=== PATIENT | female | born 1995 | race African-American/Black ===

== ENCOUNTER 2018-08-27 00:04 | Emergency (ER) | payer MEDICAID ==
[~2018-08-27] VITALS: Ht 154.9 cm; Wt 49.9 kg
[2018-08-27] MEDS ORDERED: ALBUTEROL2.5 MG/3 M INH (00:15)
[2018-08-27] MEDS ORDERED: ALBUTEROL SULF8.5 GM INH (00:15)
[2018-08-27] MEDS ORDERED: D5NS 1,000 ML IV SCH (00:30)
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
[2018-08-27] MEDS ORDERED: Albuterol ud Inhalation HHN ONE (00:45)
--- NOTE | 2018-08-27 00:49 | Emergency Room Report ---
History of Present Illness General Chief Complaint: Headache Source: Patient Present Illness HPI Patient is a 22-year-old female presented after increased gastric discomfort and headache. Patient reports of increased vomiting and diarrhea. Patient was noted to have been approximately 13 weeks. Patient denies prior . Patient states that she had not been having difficulty with urination. She reports having prior history of asthma and states she has been using her inhaler more. She reports having moderate headache.She denies recent trauma. Allergies: Coded Allergies: No Known Allergies (Unverified , 08/27/18) Patient History Past Medical History: see triage record Now: Yes : 2 Reviewed Nursing Documentation: PMH: Agreed; PSxH: Agreed Nursing Documentation-PMH Past Medical History: No Stated History Hx Asthma: Yes Review of Systems All Other Systems: negative except mentioned in HPI Physical Exam Vital Signs Date Time Temp Pulse Resp B/P (MAP) Pulse Ox O2 Delivery O2 Flow Rate FiO2 08/27/18 00:07 98.4 96 15 117/51 99 Room Air Sp02 EP Interpretation: reviewed, normal General Appearance: normal inspection, well appearing, no apparent distress, alert, GCS 15 Head: normocephalic, atraumatic ENT: normal ENT inspection, hearing grossly normal, normal voice Neck: normal inspection, full range of motion, supple, no bony tend Respiratory: normal inspection, lungs clear, normal breath sounds, no respiratory distress, no retraction, no wheezing Cardiovascular #1: regular rate, rhythm, no edema Gastrointestinal: normal inspection, normal bowel sounds, non tender, soft, no guarding, no hernia, other - gravid uterus Genitourinary: no CVA tenderness Musculoskeletal: normal inspection, back normal, normal range of motion Neurologic: normal inspection, alert, oriented x3, responsive, lapping machine tender III-XII nml as tested, motor strength/tone normal, speech normal Psychiatric: normal inspection, judgement/insight normal, mood/affect normal Skin: normal inspection, normal color, no rash Medical Decision Making Diagnostic Impression: Primary Impression: Hyperemesis Additional Impression: Dehydration ER Course Present for headache. Differential diagnoses included but was not limited to hyperemesis, dehydration, urinary infection, subarachnoid hemorrhage, meningitis , aneurysm, mass lesion, intracranial hemorrhage. Patient has a benign exam laboratory testing at this time does not appear to require any imaging at this time. Patient was noted to have intrauterine on bedside ultrasound which showed adequate heart tones in the 150s and active fetus. Patient was given IV antiemetics as well as IV fluids.Headache after IV fluids. Patient states she felt better and wanted to go home. Patient was advised to follow-up with her [employer]VIS[employer] for recheck. She was given prescription for Zofran. Labs Test 08/27/18 00:40 08/27/18 01:15 White Blood Count 7.7 K/UL (4.8-10.8) Red Blood Count 4.34 M/UL (4.20-5.40) Hemoglobin 13.4 G/DL (12.0-16.0) Hematocrit 39.5 % (37.0-47.0) Mean Corpuscular Volume 91 FL (80-99) Mean Corpuscular Hemoglobin 31.0 PG (27.0-31.0) Mean Corpuscular Hemoglobin Concent 34.0 G/DL (32.0-36.0) Red Cell Distribution Width 12.1 % (11.6-14.8) Platelet Count 292 K/UL (150-450) Mean Platelet Volume 6.2 FL (6.5-10.1) Neutrophils (%) (Auto) 62.6 % (45.0-75.0) Lymphocytes (%) (Auto) 23.8 % (20.0-45.0) Monocytes (%) (Auto) 8.2 % (1.0-10.0) Eosinophils (%) (Auto) 4.6 % (0.0-3.0) Basophils (%) (Auto) 0.8 % (0.0-2.0) Sodium Level 135 MMOL/L (136-145) Potassium Level 3.7 MMOL/L (3.5-5.1) Chloride Level 102 MMOL/L (98-107) Carbon Dioxide Level 20 MMOL/L (21-32) Anion Gap 13 mmol/L (5-15) Blood Urea Nitrogen 8 mg/dL (7-18) Creatinine 0.8 MG/DL (0.55-1.30) Estimat Glomerular Filtration Rate > 60 mL/min (>60) Glucose Level 74 MG/DL (74-106) Calcium Level 9.3 MG/DL (8.5-10.1) Total Bilirubin 0.3 MG/DL (0.2-1.0) Aspartate Amino Transf (AST/SGOT) 20 U/L (15-37) Alanine Aminotransferase (ALT/SGPT) 19 U/L (12-78) Alkaline Phosphatase 45 U/L (46-116) Total Protein 7.7 G/DL (6.4-8.2) Albumin 3.5 G/DL (3.4-5.0) Globulin 4.2 g/dL Albumin/Globulin Ratio 0.8 (1.0-2.7) Lipase 178 U/L (73-393) Urine Color Yellow Urine Appearance Cloudy Urine pH 6 (4.5-8.0) Urine Specific [place] 1.025 (1.005-1.035) Urine Protein 2+ (NEGATIVE) Urine Glucose (UA) Negative (NEGATIVE) Urine Ketones 4+ (NEGATIVE) Urine Blood Negative (NEGATIVE) Urine Nitrite Negative (NEGATIVE) Urine Bilirubin Negative (NEGATIVE) Urine Urobilinogen Normal MG/DL (0.0-1.0) Urine Leukocyte Esterase Negative (NEGATIVE) Urine RBC 0-2 /HPF (0 - 2) Urine WBC 2-4 /HPF (0 - 2) Urine Squamous Epithelial Cells Many /LPF (NONE/OCC) Urine Bacteria Moderate /HPF (NONE) Urine Mucus Moderate /LPF (NONE/OCC) Urine HCG, Qualitative Positive (NEGATIVE) Urine Opiates Screen Negative (NEGATIVE) Urine Barbiturates Screen Negative (NEGATIVE) Phencyclidine (PCP) Screen Negative (NEGATIVE) Urine Amphetamines Screen Negative (NEGATIVE) Urine Benzodiazepines Screen Negative (NEGATIVE) Urine Cocaine Screen Negative (NEGATIVE) Urine Marijuana (THC) Screen Negative (NEGATIVE) Last Vital Signs Date Time Temp Pulse Resp B/P (MAP) Pulse Ox O2 Delivery O2 Flow Rate FiO2 08/27/18 00:07 98.4 96 15 117/51 99 Room Air Status: improved Disposition: HOME, SELF-CARE Condition: Stable Scripts Ondansetron (Zofran) 4 Mg Tablet 4 MG ORAL Q6H PRN for Nausea & Vomiting, #30 TAB 0 Refills Prov: Levy Pang MD 08/27/18 Referrals: NOT CHOSEN IPA/,REFERRING (PCP) Levy Pang MD Aug 27, 2018 00:49
[2018-08-27 01:02] LABS: BASOPHILS % (AUTO) 0.8 % (0.0-2.0); EOSINOPHILS % (AUTO) 4.6 % (0.0-3.0); HEMATOCRIT 39.5 % (37.0-47.0); HEMOGLOBIN 13.4 G/DL (12.0-16.0); LYMPHOCYTES % (AUTO) 23.8 % (20.0-45.0); MEAN CORPUSCULAR VOLUME 91 FL (80-99); MONOCYTES % (AUTO) 8.2 % (1.0-10.0); NEUTROPHILS % (AUTO) 62.6 % (45.0-75.0); PLATELET COUNT 292 K/UL (150-450); RED BLOOD COUNT 4.34 M/UL (4.20-5.40); RED CELL DISTRIBUTION WIDTH 12.1 % (11.6-14.8); WHITE BLOOD COUNT 7.7 K/UL (4.8-10.8)
[2018-08-27 01:07] LABS: ANION GAP 13 mmol/L (5-15); BLOOD UREA NITROGEN 8 mg/dL (7-18); CALCIUM 9.3 MG/DL (8.5-10.1); CARBON DIOXIDE 20 MMOL/L (21-32); CHLORIDE 102 MMOL/L (98-107); CREATININE 0.8 MG/DL (0.55-1.30); POTASSIUM 3.7 MMOL/L (3.5-5.1); SODIUM 135 MMOL/L (136-145)
[2018-08-27 01:12] LABS: ALANINE AMINOTRANSFERASE 19 U/L (12-78); ALBUMIN 3.5 G/DL (3.4-5.0); ALBUMIN/GLOBULIN RATIO 0.8 (1.0-2.7); ALKALINE PHOSPHATASE 45 U/L (46-116); ASPARTATE AMINO TRANSFERASE 20 U/L (15-37); BILIRUBIN,TOTAL 0.3 MG/DL (0.2-1.0)
[2018-08-27 01:15] VITALS: BP 111/54
[2018-08-27 01:45] LABS: APPEARANCE,URINE CLOUDY; BILIRUBIN, URINE NEGATIVE (NEGATIVE); GLUCOSE, URINE (UA) NEGATIVE (NEGATIVE); KETONES,URINE 4+ (NEGATIVE); LEUKOCYTE ESTERASE ,URINE NEGATIVE (NEGATIVE); NITRITE,URINE NEGATIVE (NEGATIVE); PH,URINE 6 (4.5-8.0); PROTEIN,URINE 2+ (NEGATIVE); UROBILINOGEN,URINE NORMAL MG/DL (0.0-1.0)
[2018-08-27 01:51] LABS: COLOR,URINE YELLOW
--- NOTE | 2018-08-27 02:00 | NUR ---
ED Nurse Note: PT RESTING QUIETLY, MEDS GIVEN FOR NAUSEA SLIGHTLY EFFECTIVE, NOT COMPLETELY RESOLVED BUT CAN HANDLE ORAL LIQUIDS WITHOUT EMESIS, PT TOLERATING WELL, MEDICATED FOR PAIN WITH TYLENOL, ALSO EFFECTIVE, PT COMPLETED BREATHING TREATMENT, O2 GEB=765% AND STATES SHE FEELS BETTER, PT FAMILY MEMBER ARRIVED AT BEDSIDE, NO CP, NO SOB, WILL CONTINUE TO CLOSELY MONITOR AND RESUME ORDERED.
[2018-08-27] MEDS ORDERED: ZOFRAN4 MG ORAL (02:31)
[2018-08-27 03:00] VITALS: BP 117/63
[2018-08-27 03:45] VITALS: BP 122/61
--- NOTE | 2018-08-27 03:50 | NUR ---
ED Nurse Note: PT COMPLETED ALL IV FLUIDS AND BEING DISCHARGED TO HOME, PT IS AWAKE, ALERT AND ORIENTED X 4, AMBULATORY, PT GIVEN F/U INFO, AFTER CARE INSTRUCTIONS AND RE-VERBALIZES PROPER MEDICATION ADMINISTRATION WITH PRESCRIPTION, PT ALSO GIVEN CLINIC INFORMATION FOR POSSIBLE CLINICS TO F/U, WITH FAMILY, ARM BAND AND IV LINE REMOVED WITHOUT COMPLICATIONS, NAD NOTED DURING D/C TO HOME.
[2018-08-27 04:00] VITALS: BP 122/61
== END 2018-08-27 04:00 | disposition home or self-care (01) ==
LOC: EMR 00:29
DX: R10.9 Unspecified abdominal pain (principal); R51 Headache; O21.9 Vomiting of pregnancy, unspecified; Z3A.13 13 weeks gestation of pregnancy
CPT/HCPCS: 36415; 80053; 80307; 81003; 81025; 83690; 85025; 87086; 94640; 94664; 96361; 96374; 99284; J2405

== ENCOUNTER 2018-09-22 09:55 | Emergency (ER) | payer MEDICAID ==
[~2018-09-22] VITALS: Ht 154.9 cm; Wt 49.0 kg
[~2018-09-22 09:55] MED LIST: ALBUTEROL SULF8.5 GM INH; ALBUTEROL2.5 MG/3 M INH; ZOFRAN4 MG ORAL
--- NOTE | 2018-09-22 10:11 | NUR ---
ED Nurse Note: Pt about 17 weeks came in from home due to nausea/vomitting/contipation x3 days. No complaint of abdominal pain brandon. No active vomtting. Will cont to monitor.
[2018-09-22] MEDS ORDERED: Metoclopramide 10mg/2ml Inj IVP ONE (10:30)
[2018-09-22] MEDS ORDERED: D5 1/2NS 1,000 ML IV SCH (10:30)
[2018-09-22] MEDS ORDERED: D5NS 1,000 ML IV ONE (10:30)
[2018-09-22] MEDS ORDERED: DiphenhydrAMINE 50mg/ml Inj IVP ONE (10:30)
--- NOTE | 2018-09-22 10:37 | NUR ---
ED Nurse Note: Blood and urine collected and sent to lab.
--- NOTE | 2018-09-22 10:39 | Emergency Room Report ---
History of Present Illness General Chief Complaint: Vomiting Source: Patient Present Illness HPI Patient presents with uncontrolled vomiting. She is 16 weeks and her last period was June 02. She's not been before. She's unable to keep down Pedialyte. She's not used any medications. Yesterday she had some suprapubic pain. It felt like a cramp. She took no medication for that. Resolved overnight and there is no pain at this time. She denies any vaginal bleeding or discharge. There is no dysuria. She denies fever or chills. She feels weak when she stands and dizzy. She recently moved from [place] and has not had checkups here. She was being followed in [place]. She does not know her blood type. She does have a prescription for vitamins. History of asthma without any recent wheezing or shortness of breath. She denies any chest pain or rashes. No headache. No calf pain or swelling. Allergies: Coded Allergies: No Known Allergies (Unverified , 08/27/18) Patient History Past Medical History: see triage record Social History Narrative Recent move from [place] Now: Yes - 16 WEEKS Reviewed Nursing Documentation: PMH: Agreed; PSxH: Agreed Nursing Documentation-PM Past Medical History: No History, Except For Hx Asthma: Yes Review of Systems All Other Systems: negative except mentioned in HPI Physical Exam Vital Signs Date Time Temp Pulse Resp B/P (MAP) Pulse Ox O2 Delivery O2 Flow Rate FiO2 09/22/18 10:00 98.6 97 16 118/66 98 Room Air Sp02 EP Interpretation: reviewed, normal General Appearance: well appearing, no apparent distress, GCS 15 Head: normocephalic Eyes: bilateral eye normal inspection, bilateral eye PERRL ENT: moist mucus membranes Neck: supple Respiratory: lungs clear, normal breath sounds Cardiovascular #1: regular rate, rhythm Cardiovascular #2: 2+ radial (R) Gastrointestinal: normal inspection, normal bowel sounds, non tender, non- distended Genitourinary: no CVA tenderness, deferred - Ultrasound Musculoskeletal: back normal, gait/station normal, normal range of motion Neurologic: alert, oriented x3, grossly normal Psychiatric: mood/affect normal Skin: normal inspection, warm/dry Medical Decision Making Diagnostic Impression: Primary Impression: Hyperemesis Additional Impression: 16 weeks 6 days gestation ER Course Patient presents 16 weeks with persistent vomiting and unable to keep down liquids. Differential includes hyperemesis cysts gravidarum, urinary tract infection, threatened miscarriage, gastroenteritis amongst others. Evaluation with labs and ultrasound. Patient will be treated with IV hydration with D5 normal saline. In addition the patient will be given Reglan and Benadryl. Labs with normal white count and hemoglobin. CMP normal. Urinalysis with ketones. No pyuria. Ultrasound reveals intrauterine 16 weeks 6 days without abnormality. Patient is able to tolerate oral liquids and solid food. She is no longer dizzy at this time. Discussed treatment plan. Patient stable for outpatient observation and treatment. Laboratory Tests Test 09/22/18 10:10 09/22/18 10:29 Urine Color Brown Urine Appearance Slightly cloudy Urine pH 6.5 (4.5-8.0) Urine Specific [place] 1.010 (1.005-1.035) Urine Protein 1+ (NEGATIVE) H Urine Glucose (UA) Negative (NEGATIVE) Urine Ketones 3+ (NEGATIVE) H Urine Blood Negative (NEGATIVE) Urine Nitrite Negative (NEGATIVE) Urine Bilirubin Negative (NEGATIVE) Urine Urobilinogen 1 MG/DL (0.0-1.0) H Urine Leukocyte Esterase 1+ (NEGATIVE) H Urine RBC 0 /HPF (0 - 2) Urine WBC 2-4 /HPF (0 - 2) Urine Squamous Epithelial Cells Moderate /LPF (NONE/OCC) H Urine Bacteria Many /HPF (NONE) H White Blood Count 6.1 K/UL (4.8-10.8) Red Blood Count 4.32 M/UL (4.20-5.40) Hemoglobin 13.1 G/DL (12.0-16.0) Hematocrit 40.4 % (37.0-47.0) Mean Corpuscular Volume 93 FL (80-99) Mean Corpuscular Hemoglobin 30.4 PG (27.0-31.0) Mean Corpuscular Hemoglobin Concent 32.5 G/DL (32.0-36.0) Red Cell Distribution Width 11.9 % (11.6-14.8) Platelet Count 324 K/UL (150-450) Mean Platelet Volume 6.2 FL (6.5-10.1) L Neutrophils (%) (Auto) 65.7 % (45.0-75.0) Lymphocytes (%) (Auto) 20.8 % (20.0-45.0) Monocytes (%) (Auto) 6.8 % (1.0-10.0) Eosinophils (%) (Auto) 6.2 % (0.0-3.0) H Basophils (%) (Auto) 0.5 % (0.0-2.0) Sodium Level 135 MMOL/L (136-145) L Potassium Level 4.2 MMOL/L (3.5-5.1) Chloride Level 103 MMOL/L (98-107) Carbon Dioxide Level 24 MMOL/L (21-32) Anion Gap 9 mmol/L (5-15) Blood Urea Nitrogen 5 mg/dL (7-18) L Creatinine 0.7 MG/DL (0.55-1.30) Estimate Glomerular Filtration Rate > 60 mL/min (>60) Glucose Level 108 MG/DL (74-106) H Calcium Level 9.7 MG/DL (8.5-10.1) Total Bilirubin 0.2 MG/DL (0.2-1.0) Aspartate Amino Transferase (AST) 23 U/L (15-37) Alanine Aminotransferase (ALT) 21 U/L (12-78) Alkaline Phosphatase 52 U/L (46-116) Total Protein 8.1 G/DL (6.4-8.2) Albumin 3.6 G/DL (3.4-5.0) Globulin 4.5 g/dL Albumin/Globulin Ratio 0.8 (1.0-2.7) L Lipase 225 U/L (73-393) CT/MRI/US Diagnostic Results CT/MRI/US Diagnostic Results : Imaging Test Ordered: Pelvic Impression Impression: 16 week one day, by average of ultrasound measurements, single live intrauterine . No unusual features Last Vital Signs Date Time Temp Pulse Resp B/P (MAP) Pulse Ox O2 Delivery O2 Flow Rate FiO2 09/22/18 15:07 98.6 74 20 114/67 100 Room Air Status: improved Disposition: HOME, SELF-CARE Condition: Improved Scripts Promethazine Hcl (PROMETHEGAN) 25 Mg Supp.rect 25 MG RC Q8HR PRN for Nausea & Vomiting, #4 SUPP 1 Refill Prov: Rivas Oates MD 09/22/18 Promethazine Hcl* (PHENERGAN*) 25 Mg Tablet 25 MG ORAL Q8HR PRN for Nausea & Vomiting, #15 TAB 0 Refills Prov: Rivas Oates MD 09/22/18 Referrals: NOT CHOSEN IPA/,REFERRING (PCP) Rivas Oates MD Sep 22, 2018 10:39
--- NOTE | 2018-09-22 10:45 | NUR ---
ED Nurse Note: US tech notified about order.
[2018-09-22 10:52] LABS: BASOPHILS % (AUTO) 0.5 % (0.0-2.0); EOSINOPHILS % (AUTO) 6.2 % (0.0-3.0); HEMATOCRIT 40.4 % (37.0-47.0); HEMOGLOBIN 13.1 G/DL (12.0-16.0); LYMPHOCYTES % (AUTO) 20.8 % (20.0-45.0); MEAN CORPUSCULAR VOLUME 93 FL (80-99); MONOCYTES % (AUTO) 6.8 % (1.0-10.0); NEUTROPHILS % (AUTO) 65.7 % (45.0-75.0); PLATELET COUNT 324 K/UL (150-450); RED BLOOD COUNT 4.32 M/UL (4.20-5.40); RED CELL DISTRIBUTION WIDTH 11.9 % (11.6-14.8); WHITE BLOOD COUNT 6.1 K/UL (4.8-10.8)
[2018-09-22 11:02] LABS: APPEARANCE,URINE SLIGHTLY CLOUDY; BILIRUBIN, URINE NEGATIVE (NEGATIVE); GLUCOSE, URINE (UA) NEGATIVE (NEGATIVE); KETONES,URINE 3+ (NEGATIVE); LEUKOCYTE ESTERASE ,URINE 1+ (NEGATIVE); NITRITE,URINE NEGATIVE (NEGATIVE); PH,URINE 6.5 (4.5-8.0); PROTEIN,URINE 1+ (NEGATIVE); UROBILINOGEN,URINE 1 MG/DL (0.0-1.0)
[2018-09-22 11:06] LABS: COLOR,URINE BROWN
[2018-09-22 11:07] LABS: ANION GAP 9 mmol/L (5-15); BLOOD UREA NITROGEN 5 mg/dL (7-18); CALCIUM 9.7 MG/DL (8.5-10.1); CARBON DIOXIDE 24 MMOL/L (21-32); CHLORIDE 103 MMOL/L (98-107); CREATININE 0.7 MG/DL (0.55-1.30); POTASSIUM 4.2 MMOL/L (3.5-5.1); SODIUM 135 MMOL/L (136-145)
--- NOTE | 2018-09-22 11:07 | NUR ---
ED Nurse Note: Pt down to US for imaging.
[2018-09-22 11:11] LABS: ALANINE AMINOTRANSFERASE 21 U/L (12-78); ALBUMIN 3.6 G/DL (3.4-5.0); ALBUMIN/GLOBULIN RATIO 0.8 (1.0-2.7); ALKALINE PHOSPHATASE 52 U/L (46-116); ASPARTATE AMINO TRANSFERASE 23 U/L (15-37); BILIRUBIN,TOTAL 0.2 MG/DL (0.2-1.0)
[2018-09-22 13:07] VITALS: BP 109/67
--- NOTE | 2018-09-22 14:38 | Diagnostic Imaging Report ---
Indication: Pelvic pain, vomiting x2 weeks, patient Technique: Transabdominal and transvaginal images Comparison: none Findings: There is a single live intrauterine . This demonstrates cephalic presentation. There is positive heart motion, heart rate is 151 bpm. Normal amniotic fluid volume, amniotic fluid index is 15.7 cm. Posterior fundal placenta, clears the internal cervical os. Cervix is closed, endocervical canal measuring 3 cm in length. measurements as follows: Biparietal diameter 3.5 cm, 16 weeks 6 days; head circumference 13.3 cm, 16 weeks 6 days; abdominal circumference 10.2 cm, 16 weeks 2 days; femur length 1.7 cm, 15 weeks zero days. Estimated gestational age by average of ultrasound measurements is 16 weeks one day. Estimated gestational age by dates is 15 weeks 4 days. Estimated date of delivery 03/08/2019. Only limited assessment of anatomy, due to early stage of , emergent nature of the exam. Normal three-vessel cord, stomach, cord insertion, spine, four-chamber heart, urinary bladder No definite myometrial abnormality. Neither ovary could be visualized. Impression: 16 week one day, by average of ultrasound measurements, single live intrauterine . No unusual features
[2018-09-22] MEDS ORDERED: PROMETHEGAN25 MG RC (15:01)
[2018-09-22] MEDS ORDERED: PHENERGAN25 M1 ORAL (15:01)
[2018-09-22 15:07] VITALS: BP 114/67
--- NOTE | 2018-09-22 15:07 | NUR ---
ED Nurse Note: Pt is ready to be discharged by ERMD. Discharge paper and prescription given, mother verbalized understanding of discharge instruction. AOx4, VSS. Wristband and IV line removed. Pt ambulated out with steady gait with all belongings.
== END 2018-09-22 15:07 | disposition home or self-care (01) ==
LOC: EMR 10:08
DX: O21.0 Mild hyperemesis gravidarum (principal); Z3A.16 16 weeks gestation of pregnancy; O26.892 Other specified pregnancy related conditions, second trimester; R10.30 Lower abdominal pain, unspecified
CPT/HCPCS: 36415; 76805; 80053; 81003; 83690; 85025; 86850; 86900; 86901; 87086; 96365; 96366; 96375; 99284; J1200; J2765

== ENCOUNTER 2018-11-25 17:51 | Emergency (ER) | payer MEDICAID, OTHER ==
[~2018-11-25] VITALS: Ht 154.9 cm; Wt 52.2 kg
[~2018-11-25 17:51] MED LIST changes: +PHENERGAN25 M1 ORAL; +PROMETHEGAN25 MG RC
[2018-11-25 18:04] VITALS: BP 122/74
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
[2018-11-25] MEDS ORDERED: Acetaminophen 500mg (ES) tab ORAL ONE (18:30)
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
--- NOTE | 2018-11-25 19:05 | NUR ---
ED Nurse Note: Blood and urine sent.
--- NOTE | 2018-11-25 19:13 | NUR ---
HAND-OFF: Report given to Valentina PALACIOS.
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
[2018-11-25 19:17] LABS: BILIRUBIN, URINE NEGATIVE (NEGATIVE); COLOR,URINE PALE YELLOW; GLUCOSE, URINE (UA) NEGATIVE (NEGATIVE); KETONES,URINE NEGATIVE (NEGATIVE); LEUKOCYTE ESTERASE ,URINE 1+ (NEGATIVE); NITRITE,URINE NEGATIVE (NEGATIVE); PH,URINE 7 (4.5-8.0); PROTEIN,URINE 1+ (NEGATIVE); UROBILINOGEN,URINE NORMAL MG/DL (0.0-1.0)
[2018-11-25 19:18] LABS: APPEARANCE,URINE SLIGHTLY CLOUDY
--- NOTE | 2018-11-25 19:45 | NUR ---
ED Nurse Note: Pt's HR 144/mint. Pt was sent down for U/S.
[2018-11-25 19:59] LABS: BASOPHILS % (AUTO) 0.7 % (0.0-2.0); EOSINOPHILS % (AUTO) 5.2 % (0.0-3.0); HEMATOCRIT 34.8 % (37.0-47.0); HEMOGLOBIN 11.8 G/DL (12.0-16.0); LYMPHOCYTES % (AUTO) 25.2 % (20.0-45.0); MEAN CORPUSCULAR VOLUME 92 FL (80-99); NEUTROPHILS % (AUTO) 60.9 % (45.0-75.0); PLATELET COUNT 300 K/UL (150-450); RED BLOOD COUNT 3.77 M/UL (4.20-5.40); RED CELL DISTRIBUTION WIDTH 12.5 % (11.6-14.8); WHITE BLOOD COUNT 7.5 K/UL (4.8-10.8)
[2018-11-25 20:00] LABS: ANION GAP 11 mmol/L (5-15); BLOOD UREA NITROGEN 7 mg/dL (7-18); CALCIUM 9.5 MG/DL (8.5-10.1); CARBON DIOXIDE 24 MMOL/L (21-32); CHLORIDE 103 MMOL/L (98-107); CREATININE 0.7 MG/DL (0.55-1.30); POTASSIUM 3.9 MMOL/L (3.5-5.1); SODIUM 138 MMOL/L (136-145)
[2018-11-25 20:05] LABS: ALANINE AMINOTRANSFERASE 44 U/L (12-78); ALBUMIN 3.3 G/DL (3.4-5.0); ALBUMIN/GLOBULIN RATIO 0.7 (1.0-2.7); ALKALINE PHOSPHATASE 77 U/L (46-116); ASPARTATE AMINO TRANSFERASE 32 U/L (15-37); BILIRUBIN,TOTAL 0.2 MG/DL (0.2-1.0)
--- NOTE | 2018-11-25 20:20 | NUR ---
ED Nurse Note: Pt returned from U/S.
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
[2018-11-25 22:16] VITALS: BP 108/69
--- NOTE | 2018-11-25 22:16 | NUR ---
TRANSFER [facility]/ [facility] Triage: Patient transferred to [facility] Triage as ordered. Report given to Symone/RN. Belongings sent with Pt and bedside report given to EMS.Family at bed side.
== END 2018-11-25 22:16 | disposition short-term general hospital (02) ==
LOC: EMR 19:05
DX: O26.892 Other specified pregnancy related conditions, second trimester (principal); Z3A.26 26 weeks gestation of pregnancy; R10.30 Lower abdominal pain, unspecified; M54.5 Low back pain; V43.52XA Car driver injured in collision with other type car in traffic accident, initial encounter; Y92.481 Parking lot as the place of occurrence of the external cause
CPT/HCPCS: 36415; 76805; 80053; 81003; 83690; 84702; 85025; 86850; 86900; 86901; 87086; 96360; 99285

== ENCOUNTER 2019-12-07 15:36 | Emergency (ER) | payer OTHER ==
[~2019-12-07] VITALS: Ht 154.9 cm; Wt 54.4 kg
[2019-12-07 16:02] VITALS: BP 119/69
--- NOTE | 2019-12-07 17:19 | Emergency Room Report ---
History of Present Illness General Chief Complaint: General Complaint Source: Patient Present Illness HPI 24-year-old female with no symptom past medical history here requesting test via blood. Reports that she was last sexually active 2 weeks ago , denies any vaginal bleeding or spotting. Is in no discomfort. Reports her last menstrual period was 2 months ago was used to take control however has not taken control in over a month now. Sitting comfortably with stable vital signs. Allergies: Coded Allergies: No Known Allergies (Unverified , 08/27/18) COVID-19 Screening Contact w/high risk pt: No Recent Travel to affected area: No Experienced COVID-19 symptoms?: No Patient History Past Medical History: see triage record Past Surgical History: none Pertinent Family History: none Now: Yes Immunizations: UTD Reviewed Nursing Documentation: PMH: Agreed; PSxH: Agreed Nursing Documentation-PMH Hx Asthma: Yes Review of Systems All Other Systems: negative except mentioned in HPI Physical Exam Vital Signs Date Time Temp Pulse Resp B/P (MAP) Pulse Ox O2 Delivery O2 Flow Rate FiO2 12/07/19 15:52 98.1 94 20 119/69 (86) 98 Room Air Sp02 EP Interpretation: reviewed, normal General Appearance: no apparent distress, alert, GCS 15, non-toxic Head: normocephalic, atraumatic Eyes: bilateral eye normal inspection, bilateral eye PERRL ENT: hearing grossly normal, normal pharynx, no angioedema, normal voice Neck: full range of motion, supple/symm/no masses Respiratory: chest non-tender, lungs clear, normal breath sounds, no rhonchi, no wheezing, speaking full sentences Cardiovascular #1: regular rate, rhythm, no edema Gastrointestinal: non tender, soft Rectal: deferred Genitourinary: no CVA tenderness Musculoskeletal: back normal Neurologic: alert, motor strength/tone normal, oriented x3, sensory intact, responsive, speech normal Psychiatric: judgement/insight normal, memory normal, mood/affect normal, no suicidal/homicidal ideation Skin: no rash Lymphatic: no adenopathy Medical Decision Making PA Attestation All diagnoses and treatment plans were reviewed and discussed with my supervising physician Dr. Alvarez Diagnostic Impression: Primary Impression: test negative ER Course 24-year-old female with no symptom past medical history here requesting test via blood. Reports that she was last sexually active 2 weeks ago , denies any vaginal bleeding or spotting. Is in no discomfort. Reports her last menstrual period was 2 months ago was used to take control however has not taken control in over a month now. Sitting comfortably with stable vital signs. Ddx considered but are not limited to: Positive , negative , complication Vital signs: are WNL, pt. is afebrile H&PE are most consistent with: Negative test ORDERS: Urine test ED INTERVENTIONS: None required at this time. DISCHARGE: At this time pt. is stable for d/c to home. Will provide printed patient care instructions, and any necessary prescriptions. Care plan and follow up instructions have been discussed with the patient prior to discharge. Gave patient a list of [facility] clinic and go as we do not test for blood hCG at this time as we have a negative urine test. Patient in no distress, denies any abdominal pain, vaginal discharge. Last Vital Signs Date Time Temp Pulse Resp B/P (MAP) Pulse Ox O2 Delivery O2 Flow Rate FiO2 12/07/19 15:52 98.1 94 20 119/69 (86) 98 Room Air Disposition: HOME, SELF-CARE Condition: Stable Patient Instructions: Test Information Giorgio Valdez Dec 07, 2019 17:19
[2019-12-07 17:32] VITALS: BP 119/69
== END 2019-12-07 17:32 | disposition home or self-care (01) ==
LOC: EMR 16:00
DX: Z00.00 Encounter for general adult medical examination without abnormal findings (principal)
CPT/HCPCS: 81025; Z7502; 99283

== ENCOUNTER 2020-06-11 22:33 | Emergency (ER) | payer OTHER ==
[~2020-06-11] VITALS: Ht 154.9 cm; Wt 52.2 kg
[2020-06-11] MEDS ORDERED: Albuterol 90mcg Inhaler 8gm INH ONE ×2 (22:45)
--- NOTE | 2020-06-11 22:45 | NUR ---
ED Nurse Note: Patient walked into the ED with c/o asthma. Patient stated shes experiencing asthma flare up since this am accompanied by chest pain /. Patient stated he ran out of inhaler for 3 weeks. PAtient denies fever and chills, N&V. Patient satting at 100% on RA at bedside. + wheezes heard by upon assessment.
--- NOTE | 2020-06-11 22:46 | NUR ---
ED Nurse Note: ERMd at bedside
--- NOTE | 2020-06-11 22:48 | NUR ---
ED Nurse Note: Breathing tx and oral meds given
--- NOTE | 2020-06-11 22:48 | Emergency Room Report ---
History of Present Illness General Chief Complaint: Asthma Source: Patient Present Illness HPI This is a 24-year-old female with history of asthma. She presents with chief complaint of asthma exacerbation. Onset tonight. She is out of her inhaler. Last use was 3 weeks ago. No fever chills. no intubation. Unknown last steroid use. 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 COVID-19 Screening: Negative COVID-19 COVID-19 Testing Source: 06/11 Patient History Past Medical History: asthma Past Surgical History: none Pertinent Family History: none Social History: Denies: smoking Now: No Immunizations: other Reviewed Nursing Documentation: PMH: Agreed; PSxH: Agreed Nursing Documentation-PMH Hx Asthma: Yes Review of Systems Eye: Denies: eye pain, blurred vision ENT: Denies: ear pain, nose congestion, throat swelling Respiratory: Reports: cough, shortness of breath, wheezing Cardiovascular: Denies: chest pain, palpitations Gastrointestinal: Denies: abdominal pain, diarrhea, nausea, vomiting Musculoskeletal: Denies: back pain, joint pain Skin: Denies: rash Neurological: Denies: headache, numbness Endocrine: Denies: increased thirst, increased urine Hematologic/Lymphatic: Denies: easy bruising All Other Systems: negative except mentioned in HPI Physical Exam Vital Signs Date Time Temp Pulse Resp B/P (MAP) Pulse Ox O2 Delivery O2 Flow Rate FiO2 06/11/20 22:38 97.2 92 20 117/71 (86) 99 Room Air Vitals normal Sp02 EP Interpretation: reviewed, normal General Appearance: well appearing, no apparent distress, alert Head: normocephalic, atraumatic Eyes: bilateral eye PERRL, bilateral eye EOMI ENT: hearing grossly normal, normal pharynx Neck: full range of motion, supple, no meningismus Respiratory: chest non-tender, accessory muscle use, wheezing Cardiovascular #1: regular rate, rhythm, no murmur Gastrointestinal: normal bowel sounds, non tender, no mass, no organomegaly, no bruit, non-distended Musculoskeletal: back normal, normal range of motion, gait/station normal Psychiatric: mood/affect normal Medical Decision Making Diagnostic Impression: Primary Impression: Asthma attack Qualified Codes: J45.21 - Mild intermittent asthma with (acute) exacerbation ER Course Patient presents with asthma exacerbation. Wheezing resolved with albuterol MDI. Prednisone given. No evidence of breath or distress. No evidence of pneumonia. Will discharge home. Last Vital Signs Date Time Temp Pulse Resp B/P (MAP) Pulse Ox O2 Delivery O2 Flow Rate FiO2 06/11/20 22:38 97.2 92 20 117/71 (86) 99 Room Air Status: improved Disposition: HOME, SELF-CARE Condition: Improved Scripts Prednisone* (PREDNISONE*) 20 Mg Tablet 40 MG ORAL DAILY, #8 TAB Prov: Titi Villarreal MD 06/11/20 Albuterol Sulfate* (Albuterol Sulfate Hfa*) 8.5 Gm Hfa.aer.ad 2 PUFF INH Q4H, #1 INH Prov: Titi Villarreal MD 06/11/20 Patient Instructions: Asthma, Adult Additional Instructions: Follow-up with your doctor in 7 days as needed. Return if symptoms worsen. Titi Villarreal MD Jun 11, 2020 22:48
--- NOTE | 2020-06-11 22:58 | NUR ---
ED Nurse Note: (-) wheezes after tx upon ERMD's assessment
[2020-06-11] MEDS ORDERED: PREDNISONE20 MG ORAL (22:59)
[2020-06-11] MEDS ORDERED: ALBUTEROL SULF8.5 G1 INH (22:59)
[2020-06-11 23:01] VITALS: BP 117/71
[2020-06-11 23:06] VITALS: BP 117/71
== END 2020-06-11 23:07 | disposition home or self-care (01) ==
LOC: EMR 22:53
DX: J45.21 Mild intermittent asthma with (acute) exacerbation (principal)
CPT/HCPCS: J7512; Z7502; 99282

== ENCOUNTER 2020-07-07 09:24 | Emergency (ER) | payer OTHER ==
[~2020-07-07] VITALS: Ht 154.9 cm; Wt 53.5 kg
[~2020-07-07 09:24] MED LIST changes: +ALBUTEROL SULF8.5 G1 INH; +PREDNISONE20 MG ORAL
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
[2020-07-07 09:52] VITALS: BP 127/57
[2020-07-07] MEDS ORDERED: Acetaminophen 500mg (ES) tab ORAL ONE (10:00)
[2020-07-07 10:22] LABS: APPEARANCE,URINE SLIGHTLY CLOUDY; BILIRUBIN, URINE NEGATIVE (NEGATIVE); GLUCOSE, URINE (UA) NEGATIVE (NEGATIVE); KETONES,URINE NEGATIVE (NEGATIVE); LEUKOCYTE ESTERASE ,URINE NEGATIVE (NEGATIVE); NITRITE,URINE NEGATIVE (NEGATIVE); PH,URINE 6 (4.5-8.0); PROTEIN,URINE NEGATIVE (NEGATIVE); UROBILINOGEN,URINE NORMAL MG/DL (0.0-1.0)
[2020-07-07 10:24] LABS: COLOR,URINE YELLOW
[2020-07-07] MEDS ORDERED: TYLENOL EXTRA500 MG ORAL (12:34)
--- NOTE | 2020-07-07 12:46 | NUR ---
ER DISCHARGE NOTE: Patient is cleared to be discharged per ERMD, pt is aox4, on room air, with stable vital signs. pt was given dc and prescription instructions, pt was able to verbalize understanding, pt id band removed. pt is able to ambulate with steady gait. pt took all belongings.
[2020-07-07 12:47] VITALS: BP 125/51
--- NOTE | 2020-07-07 15:57 | Diagnostic Imaging Report ---
Indication: Pelvic pain x3 days, negative test Technique: Transabdominal and transvaginal images of the pelvis. Doppler interrogation of the ovaries Comparison: none Findings: Uterus measures 7.7 cm length by 5.3 cm AP. Endometrium measures 12 mm thick. A few small cysts are seen at the junctional zone. No myometrial abnormality. Right ovary measures 4.1 cm in length. The left ovary measures 2.6 cm in length. Both ovaries demonstrate normal Doppler signal. There is a trace amount free cul-de-sac fluid. Small nabothian cyst is demonstrated in the cervix Impression: No definite acute abnormality. Small junctional zone cysts adjacent to the endometrium, may reflect foci of adenomyomatosis Small cervical nabothian cyst Trace free cul-de-sac fluid, presumably physiologic
--- NOTE | 2020-07-08 08:09 | Emergency Room Report ---
History of Present Illness General Chief Complaint: Abdominal Pain Source: Patient Present Illness HPI 24-year-old female presents for evaluation. Notes cramping pain for the last 3 days. Pain is cramping, 8 out of 10, nonradiating. Denies any vaginal bleeding or discharge. Denies any dysuria or hematuria. Does not believe she is but is not sure. No other aggravating relieving factors. 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 Patient History Past Medical History: asthma Past Surgical History: none Pertinent Family History: none Social History: Denies: smoking, alcohol use, drug use Last Menstrual Period: 05/13/2020 Now: No Immunizations: UTD Reviewed Nursing Documentation: PMH: Agreed; PSxH: Agreed Nursing Documentation-PMH Past Medical History: No Stated History Hx Asthma: Yes Review of Systems All Other Systems: negative except mentioned in HPI Physical Exam Vital Signs Date Time Temp Pulse Resp B/P (MAP) Pulse Ox O2 Delivery O2 Flow Rate FiO2 07/07/20 09:28 97.3 90 16 122/58 (79) 98 Room Air 07/07/20 09:52 98 Sp02 EP Interpretation: reviewed, normal General Appearance: no apparent distress, alert, GCS 15, non-toxic Head: normocephalic, atraumatic Eyes: bilateral eye normal inspection, bilateral eye PERRL ENT: hearing grossly normal, normal pharynx, no angioedema, normal voice Neck: full range of motion, supple/symm/no masses Respiratory: chest non-tender, lungs clear, normal breath sounds, speaking full sentences Cardiovascular #1: regular rate, rhythm, no edema Cardiovascular #2: 2+ carotid (R), 2+ carotid (L), 2+ radial (R), 2+ radial (L ), 2+ dorsalis pedis (R), 2+ dorsalis pedis (L) Gastrointestinal: normal bowel sounds, soft, non-distended, no guarding, no rebound, tenderness - Suprapubic Rectal: deferred Genitourinary: normal inspection, no CVA tenderness Musculoskeletal: back normal, normal range of motion, gait/station normal, non- tender Neurologic: alert, motor strength/tone normal, oriented x3, sensory intact, responsive, speech normal Psychiatric: judgement/insight normal, memory normal, mood/affect normal, no suicidal/homicidal ideation Reflexes: 3+ bicep (R), 3+ bicep (L), 3+ tricep (R), 3+ tricep (L), 3+ knee (R), 3+ knee (L) Lymphatic: no adenopathy Medical Decision Making Diagnostic Impression: Primary Impression: Pelvic pain ER Course 24-year-old female presents with pelvic pain and cramping DifferentialUTI, fibroids, menstrual cramps placed on stretcher. After initial history and physical I ordered UA, Tylenol, ultrasound UA negative Ultrasound shows no evidence of fibroids some cyst on the endometrium. I discussed findings with patient. Safe for discharge and close outpatient follow-up. I will provide referrals Diagnosispelvic pain Stable and discharged to home. Follow-up with PMD. Return to ED if symptoms recur or worsen Laboratory Tests Test 07/07/20 09:56 Urine Color Yellow Urine Appearance Slightly cloudy Urine pH 6 (4.5-8.0) Urine Specific [place] 1.015 (1.005-1.035) Urine Protein Negative (NEGATIVE) Urine Glucose (UA) Negative (NEGATIVE) Urine Ketones Negative (NEGATIVE) Urine Blood 1+ (NEGATIVE) H Urine Nitrite Negative (NEGATIVE) Urine Bilirubin Negative (NEGATIVE) Urine Urobilinogen Normal MG/DL (0.0-1.0) Urine Leukocyte Esterase Negative (NEGATIVE) Urine RBC 0-2 /HPF (0 - 2) Urine WBC 0-2 /HPF (0 - 2) Urine Squamous Epithelial Cells Moderate /LPF (NONE/OCC) H Urine Bacteria Few /HPF (NONE) Urine Mucus Few /LPF (NONE/OCC) H Urine HCG, Qualitative Negative (NEGATIVE) CT/MRI/US Diagnostic Results CT/MRI/US Diagnostic Results : Imaging Test Ordered: Pelvic US Impression Procedure: US Pelvic w/Transvag Indication: Pelvic pain x3 days, negative test Technique: Transabdominal and transvaginal images of the pelvis. Doppler interrogation of the ovaries Comparison: none Findings: Uterus measures 7.7 cm length by 5.3 cm AP. Endometrium measures 12 mm thick. A few small cysts are seen at the junctional zone. No myometrial abnormality. Right ovary measures 4.1 cm in length. The left ovary measures 2.6 cm in length. Both ovaries demonstrate normal Doppler signal. There is a trace amount free cul-de-sac fluid. Small nabothian cyst is demonstrated in the cervix Impression: No definite acute abnormality. Small junctional zone cysts adjacent to the endometrium, may reflect foci of adenomyomatosis Small cervical nabothian cyst Trace free cul-de-sac fluid, presumably physiologic Last Vital Signs Date Time Temp Pulse Resp B/P (MAP) Pulse Ox O2 Delivery O2 Flow Rate FiO2 07/07/20 12:47 97.3 86 16 125/51 99 Room Air 07/07/20 09:52 98 Status: improved Disposition: HOME, SELF-CARE Condition: Stable Scripts Acetaminophen* (TYLENOL EXTRA STRENGTH*) 500 Mg Tablet 500 MG ORAL Q8H PRN for Prn Headache/Temp > 101, #30 TAB 0 Refills Prov: Flo Wilson MD 07/07/20 Referrals: NOT CHOSEN [facility]/,REFERRING [facility] Patient Instructions: Pelvic Pain, Female Flo Wilson MD Jul 08, 2020 08:09
== END 2020-07-07 12:49 | disposition home or self-care (01) ==
LOC: EMR 12:05
DX: R10.2 Pelvic and perineal pain (principal); R10.9 Unspecified abdominal pain; J45.909 Unspecified asthma, uncomplicated; N88.8 Other specified noninflammatory disorders of cervix uteri
CPT/HCPCS: 76830; 76856; 81003; 81025; Z7502; 99284

== ENCOUNTER 2020-07-19 22:21 | Emergency (ER) | payer OTHER ==
[~2020-07-19] VITALS: Ht 154.9 cm; Wt 53.5 kg
[~2020-07-19 22:21] MED LIST changes: +TYLENOL EXTRA500 MG ORAL
[2020-07-19 22:36] VITALS: BP 112/64
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
--- NOTE | 2020-07-19 22:48 | NUR ---
ED Nurse Note: pt went for ct
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
[2020-07-19] MEDS ORDERED: HYDROCODON-ACE1 EA15 ORAL (23:11)
[2020-07-19] MEDS ORDERED: IBUPROFEN600 M1 ORAL (23:11)
[2020-07-19] MEDS ORDERED: ROBAXIN-500MG ORAL (23:11)
[2020-07-19 23:15] VITALS: BP 118/75
--- NOTE | 2020-07-19 23:15 | NUR ---
ER DISCHARGE NOTE: Patient is cleared to be discharged per ERMD, pt is aox4, on room air, with stable vital signs. pt was given dc instructions, pt was able to verbalize understanding, pt id band removed without complications. pt is able to ambulate with steady gait. pt took all belongings.
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
== END 2020-07-19 23:15 | disposition home or self-care (01) ==
LOC: EMR 22:34
DX: S63.641A Sprain of metacarpophalangeal joint of right thumb, initial encounter (principal); S09.90XA Unspecified injury of head, initial encounter; S40.011A Contusion of right shoulder, initial encounter; J45.909 Unspecified asthma, uncomplicated; V43.52XA Car driver injured in collision with other type car in traffic accident, initial encounter; Y92.411 Interstate highway as the place of occurrence of the external cause; Z79.899 Other long term (current) drug therapy
CPT/HCPCS: 29125; 70450; 73030; 73130; Z7502; 99284

== ENCOUNTER 2020-07-25 19:53 | Emergency (ER) | payer OTHER ==
[~2020-07-25] VITALS: Ht 154.9 cm; Wt 54.4 kg
[~2020-07-25 19:53] MED LIST changes: +HYDROCODON-ACE1 EA15 ORAL; +IBUPROFEN600 M1 ORAL; +ROBAXIN-500MG ORAL
[2020-07-25 20:02] VITALS: BP 117/70
[2020-07-25] MEDS ORDERED: ALBUTEROL SULF8.5 G1 INH (20:16)
[2020-07-25] MEDS ORDERED: PREDNISONE20 MG ORAL (20:16)
[2020-07-25 20:20] VITALS: BP 117/70
--- NOTE | 2020-07-28 08:23 | Emergency Room Report ---
History of Present Illness General Chief Complaint: Medication Refill Source: Patient Present Illness HPI 24-year-old female presents for evaluation. Is here for a refill of her inhaler. History of asthma. States she had an asthma attack earlier which subsided. Denies any shortness of breath now. Denies cough. Denies fevers or chills. No other aggravating relieving factors. 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: No Patient History Past Medical History: asthma Past Surgical History: none Pertinent Family History: none Social History: Denies: smoking, alcohol use, drug use Now: No Immunizations: UTD Reviewed Nursing Documentation: PMH: Agreed; PSxH: Agreed Nursing Documentation-PMH Hx Asthma: Yes Review of Systems All Other Systems: negative except mentioned in HPI Physical Exam Vital Signs Date Time Temp Pulse Resp B/P (MAP) Pulse Ox O2 Delivery O2 Flow Rate FiO2 07/25/20 20:00 98.4 78 18 117/70 (86) 98 Room Air Sp02 EP Interpretation: reviewed, normal General Appearance: no apparent distress, alert, GCS 15, non-toxic Head: normocephalic, atraumatic Eyes: bilateral eye normal inspection, bilateral eye PERRL ENT: hearing grossly normal, normal pharynx, no angioedema, normal voice Neck: full range of motion, supple/symm/no masses Respiratory: chest non-tender, lungs clear, normal breath sounds, speaking full sentences Cardiovascular #1: regular rate, rhythm, no edema Cardiovascular #2: 2+ carotid (R), 2+ carotid (L), 2+ radial (R), 2+ radial (L), 2+ dorsalis pedis (R), 2+ dorsalis pedis (L) Gastrointestinal: normal bowel sounds, non tender, soft, non-distended, no guarding, no rebound Rectal: deferred Genitourinary: normal inspection, no CVA tenderness Musculoskeletal: back normal, normal range of motion, gait/station normal, non- tender Neurologic: alert, motor strength/tone normal, oriented x3, sensory intact, responsive, speech normal Psychiatric: judgement/insight normal, memory normal, mood/affect normal, no suicidal/homicidal ideation Reflexes: 3+ bicep (R), 3+ bicep (L), 3+ tricep (R), 3+ tricep (L), 3+ knee (R), 3+ knee (L) Lymphatic: no adenopathy Medical Decision Making Diagnostic Impression: Primary Impression: Encounter for medication refill ER Course 24-year-old female presents for refill of her inhaler. History of asthma hospital course: After initial history physical exam reveals female in no acute distress. Lungs clear. Vital stable. Discussed findings with patient we will discharge home with prescription for inhaler and prednisone. Safe for discharge close ou tpatient follow-up. States she has a PMD Diagnosis-encounter for medication refill Stable and discharged to home with prescription for albuterol, prednisone. Followup with PMD. Return to ED if symptoms recur or worsen Last Vital Signs Date Time Temp Pulse Resp B/P (MAP) Pulse Ox O2 Delivery O2 Flow Rate FiO2 07/25/20 20:20 98.4 18 117/70 98 Room Air 07/25/20 20:00 78 Status: improved Disposition: HOME, SELF-CARE Condition: Stable Scripts Prednisone* (PREDNISONE*) 20 Mg Tablet 40 MG ORAL DAILY, #10 TAB Prov: Flo Wilson MD 07/25/20 Albuterol Sulfate* (Albuterol Sulfate Hfa*) 8.5 Gm Hfa.aer.ad 2 PUFF INH Q4H, #1 INH Prov: Flo Wilson MD 07/25/20 Referrals: [facility],REFERRING (PCP) Patient Instructions: Medicine Refill at the Emergency Department Flo Wilson MD Jul 28, 2020 08:22
== END 2020-07-25 20:20 | disposition home or self-care (01) ==
LOC: EMR 20:10
DX: Z76.0 Encounter for issue of repeat prescription (principal); J45.909 Unspecified asthma, uncomplicated; Z79.899 Other long term (current) drug therapy
CPT/HCPCS: 99282

== ENCOUNTER 2020-08-31 11:58 | Emergency (ER) | payer OTHER ==
[~2020-08-31] VITALS: Ht 154.9 cm; Wt 54.4 kg
[2020-08-31 12:09] VITALS: BP 114/67
--- NOTE | 2020-08-31 12:25 | NUR ---
ED Nurse Note: PT. AAOX4. AMBULATORY. PT. WALKED IN TO ER FROM HOME. PER PT., SHE HAS DYSPNEA AND WHEEZING. PT. STATED THAT SHE HAS DYSPNEA AND OUT OF INHALORS. AUDIBLE WHEEZING NOTED
[2020-08-31] MEDS ORDERED: PREDNISONE20 MG ORAL (12:29)
[2020-08-31] MEDS ORDERED: VENTOLIN HFA18 GM INH (12:29)
[2020-08-31] MEDS ORDERED: Albuterol/Ipratropium 3ml neb HHN ONE ×2 (12:30→13:45)
[2020-08-31 14:22] VITALS: BP 118/69
--- NOTE | 2020-08-31 14:22 | NUR ---
ED Nurse Note: Pt cleared by ERMD for discharge. DC instructions was given and explained to pt and verbalized understanding of teachings. prescription sent to the pharmacy. All medical deviecs such as ID band removed. Pt is AAO x4, ambulatory and left with all personal belongings.
--- NOTE | 2020-09-02 14:08 | Emergency Room Report ---
History of Present Illness General Chief Complaint: Dyspnea/Respdistress Source: Patient Present Illness HPI Patient is a 24-year-old female presents for increased difficulty with breathing. Gradual onset of symptoms. Recent negative coronavirus testing. Had run out of her inhalers. Previously had been on albuterol. Reports having intermittent episodes of similar symptoms in the past. Denies any recent hospitalizations. She normally takes albuterol. Does not take any steroid inhalers regularly. Denies any fever. Nonproductive cough. 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 COVID-19 Screening: Negative COVID-19 COVID-19 Testing Source: yest Patient History Past Medical History: see triage record Last Menstrual Period: 12-10 Now: No Reviewed Nursing Documentation: PMH: Agreed; PSxH: Agreed Nursing Documentation-PMH Past Medical History: No History, Except For Hx Asthma: Yes Review of Systems All Other Systems: negative except mentioned in HPI Physical Exam Vital Signs Date Time Temp Pulse Resp B/P (MAP) Pulse Ox O2 Delivery O2 Flow Rate FiO2 08/31/20 12:09 98.4 106 26 114/67 94 Room Air 08/31/20 13:33 2.0 28 General Appearance: well appearing, no apparent distress, alert, GCS 15 Head: normocephalic, atraumatic ENT: hearing grossly normal, normal voice Neck: full range of motion, supple Respiratory: no respiratory distress, speaking full sentences, wheezing Cardiovascular #1: normal inspection, no edema Gastrointestinal: normal inspection Musculoskeletal: no calf tenderness Neurologic: normal gait Psychiatric: mood/affect normal Skin: no rash Medical Decision Making Diagnostic Impression: Primary Impression: Asthma attack Additional Impression: Dyspnea ER Course Patient presented for shortness of breath. Differential diagnosis included but was not limited to asthma exacerbation, coronavirus infection, pneumonia, pneumothorax, congestive heart failure, viral respiratory infection, pulmonary embolism, anaphylaxis among others. Patient was checked periodically to assure stability and response to treatment. Patient was noted to have prior history of asthma. She was initially noted to have minimal respiratory distress with mild wheezing and good air movement. Patient was given breathing treatment as well as steroids. Patient was reexamined after breathing treatment and had improvement in air movement. Rapid coronavirus testing was negative. Oxygen saturation is adequate. Patient was given prescription for oral steroids as well as albuterol. Patient was advised to recheck with primary care physician in 1-2 days. She was advised to return for any worsening or other concerns. This medical record is generated with [employer] senior validation engineer software. There may be some senior validation engineer discrepancies related to use of this software Last Vital Signs Date Time Temp Pulse Resp B/P (MAP) Pulse Ox O2 Delivery O2 Flow Rate FiO2 08/31/20 14:22 98.4 89 21 118/69 100 Room Air 08/31/20 13:56 21 08/31/20 13:33 2.0 Status: improved Disposition: HOME, SELF-CARE Condition: Stable Scripts Prednisone* (PREDNISONE*) 20 Mg Tablet 40 MG ORAL DAILY, #10 TAB Prov: Levy Pang MD 08/31/20 Albuterol Sulfate (VENTOLIN HFA) 18 Gm Hfa.aer.ad 2 PUFFS INH EVERY 6 HOURS, #18 GM 0 Refills Prov: Levy Pang MD 08/31/20 Referrals: [facility],REFERRING (PCP) Patient Instructions: Shortness of Breath Levy Pagn MD Sep 02, 2020 14:07
== END 2020-08-31 14:22 | disposition home or self-care (01) ==
LOC: EMR 12:54
DX: J45.909 Unspecified asthma, uncomplicated (principal); Z20.828 Contact with and (suspected) exposure to other viral communicable diseases
CPT/HCPCS: 81025; 94640; J7512; U0002; Z7502; 99283; J7620